=== PATIENT | female | born 1960 | race Caucasian/White ===

== ENCOUNTER 2021-09-21 03:35 | Day surgery (SDC) | payer MEDICARE, MEDICAID, SELFPAY ==
[2021-09-21] VITALS (9 sets, daily range): BP systolic 103–135; BP diastolic 67–83; PULSE 81–96; RESP 12–18; TEMP 36.3–36.8; O2SAT 93–100; BMI 26.7
--- NOTE | 2021-09-21 07:15 | WPDHPUPDATE1 ---
History and Physical Update Update Date/Time: 09/21/21 07:15 History and Physical has been reviewed, including an updated exam of the patient. There are NO changes in the patient's condition. Risks, benefits, and alternatives have been discussed and questions answered. Patient agrees to proceed with procedure.
--- NOTE | 2021-09-21 07:16 | PM.IMHP ---
H&P: HPI History of Present Illness Date/Time: 09/21/21 07:16 61-year-old female with complicated left ovarian cyst complaining of severe pain. Patient suffers from multiple medical issues is and heavy smoker. She had a CT and ultrasound showed a 5cm complex cyst on left. Her pain is unrelenting and she will undergo laparoscopic left cystectomy with probable left salpingo-oophorectomy. Risks and benefits reviewed in full Chief Complaint: Left ovarian cyst and skin tag Review of Systems Review of Systems: All systems reviewed & are unremarkable except as noted in HPI and below Exam Const: General: no acute distress Eyes: General: appearance normal, both eyes and all related structures Neck: Neck: supple and no JVD Thyroid: thyroid normal Resp: Effort & Inspection: normal respiratory effort Auscultation: clear to auscultation bilaterally Cardio: Rate: regular rate Rhythm: regular rhythm GI: Inspection: non-distended GI Palp: Yes Soft to palpation, No Tenderness to palpation present (GI) and No Guarding due to palpation present (GI) Auscultation: normal bowel sounds : External Female Exam: normal external appearance Speculum Exam - Vagina: normal appearance of the vagina Bimanual Exam- Adnexa, other: tender bilaterally and Adnexal mass present on the left Skin: General skin exam: no rashes or lesions noted Extrem: General: normal to inspection and no edema Psych: Mental Status: mental status grossly normal Affect: normal affect Assessment and Plan Additional Plan Impression: Complex left ovarian cyst Plan: Laparoscopic left cystectomy with probable left salpingo-oophorectomy. She also has a skin tag on her perineum which we removed
--- NOTE | 2021-09-21 09:19 | PC.NURSE ---
Report to the Outpatient Waiting Room, entrance under the green pavilion located off [facility], at time 1215 on date 09/21/21. OR Time: 1415. - You and your visitor will be asked a series of questions to screen for COVID 19 for your protection. - A mask is required within the hospital. - Only one visitor is allowed at this time. Patient visitors will be guided where to wait when not with patient. Preoperative COVID Testing Requirements: No COVID Test needed if: (proof is required; if not received patient will have Rapid Test prior to entry) - Patient has received COVID Vaccine at least 14 days prior to procedure date or - Patient has positive COVID test result within last 90 days of surgery date. COVID Test needed if above criteria is not met If not COVID vaccinated a COVID test must be conducted within 72 hours of surgery and patient is asked to isolate self from time of testing until procedure. You will go to the [facility] for your COVID testing. The [facility] is located at the corner of [address] [facility]. You will only be called if COVID results are positive and your surgeon may reschedule your elective surgery date. Patients may have clear liquids (water, carbonated beverages, clear teas, apple juice) until 3 hours prior to surgery with a maximum of 20 ounces. - No food from midnight until time of surgery - Infants may have breast milk until 4 hours before surgery, infant formula 6 hours prior to surgery. - Children will be allowed to drink immediately following surgery. If applicable, please bring a bottle or sippy cup to assist with drinking. Juice, water, soda, and popsicles are readily available. For infants on formula, please bring formula the day of surgery. Pacifiers are allowed. Take the following medications with a SIP of water the morning of surgery: N/A - PT TOOK ALL HOME MEDS ~0530 Medications to discontinue per physician: N/A Date to take last dose: N/A Please no make-up, nail irish, hairspray, perfume, deodorant, or body powder the day of surgery. No jewelry (including any body piercings) or valuables the day of surgery, leave them at home. Please take a shower or bath the night before, or the morning of, surgery with an antibacterial soap. Wear comfortable, loose fitting clothing. Children are encouraged to wear pajamas. - Jewelry must be removed prior to entering the operating room. Rings and piercings that are not removed may be cut off. - The hospital will not accept responsibility for valuables. - Please leave all valuables, including medications, at home the day of surgery. If you are going home after surgery, a licensed line haul driver must drive you home. - NO public transportation without another adult. - We recommend that an adult stay with you for 24 hours following discharge. - We also recommend that you do not drive, make important decision, drink alcoholic beverages, or take any drugs that were not prescribed by your health care provider for at least 24 hours after your discharge time. For Pediatric surgeries, we recommend two adults accompany the child home (only one inside the building at this time). Follow any additional instructions given to you from your surgeon. Telephone instructions given to RADHA NARAYANAN and asked if any additional questions and then verbalized understanding. Patient advised to call surgeon office or pre surgery nurse liaison [phone] if any additional questions.
--- NOTE | 2021-09-21 12:24 | WPDANESEPPF ---
Anes - Initial Pre Proc Eval Procedure: Operation Date: 09/21/21 14:15 Proposed Procedures p Diagnostic Laparoscopy Left Ovarian Cystectomy, Possible Salpingo-Oophorectomy - Tal Parra MD Date/Time: 09/21/21 12:24 Surgeon: Tal Parra MD Pre Op Diagnosis: pain left ovarian cyst Patient Data Age: 61 Gender: F Height: 1.7 m Weight: 77.57 kg Allergies Allergy/AdvReac Type Severity Reaction Status Date / Time No Known Allergies Allergy Verified 09/21/21 08:47 Home Medications Medication Instructions Recorded Confirmed Type dapagliflozin-metformin [Xigduo XR] 1 tablet PO DAILY 09/21/21 09/21/21 History gabapentin 300 mg PO TID 09/21/21 09/21/21 History hydrochlorothiazide 12.5 mg PO DAILY 09/21/21 09/21/21 History hydrocodone-acetaminophen 1 tablet PO Q6H 09/21/21 09/21/21 History linaclotide [Linzess] 145 mcg PO DAILY 09/21/21 09/21/21 History lisinopril 40 mg PO DAILY 09/21/21 09/21/21 History morphine 30 mg PO BID 09/21/21 09/21/21 History Patient hx anesthesia problems: none Family hx anesthesia problems: none Results Review: All pre-operative results and documents have been reviewed as part of the pre-operative evaluation. [facility] Past Medical History Medical History Anxiety Chronic narcotic use Diabetes HTN (hypertension) Osteoarthritis Overweight (BMI 25.0-29.9) Smoker Surgical History Surgical History (Updated 09/21/21 @ 12:26 by Paulie Hamilton MD) S/P pericardial window creation Social History Social History Smoking packs per day: 1.5 Smoking cigarettes per day: 30.0 Years smoked: 40 Smoking pack-years: 60.00 Smoking status: Current every day smoker Tobacco type: cigarettes Alcohol intake: never Substance use: never Substance use type: does not use Living arrangements: with family Spiritual care concerns: No Anes - Eval Final PreProcedure Day of Procedure 09/21/21 12:24 Patient weight: overweight Heart: regular rate and rhythm Lungs: clear to auscultation and normal air movement Airway: Mallampati scale class II Neurological: alert and oriented Last oral intake: >/= 8 hours ASA classification: III Emergent: no Anesthetic plan: proceed Anesthesia type and monitoring: general ETT Results Review: All pre-operative results and documents have been reviewed as part of the pre-operative evaluation. Informed Consent: The patient's anesthetic plan and its attendant risks and benefits were discussed with the patient/family/POA. Questions were solicited and answers provided to the satisfaction of the patient/family/POA.
--- NOTE | 2021-09-21 12:34 | ECG_ITS ---
Measurements Intervals [place] Rate: 87 P: 30 AK: 188 QRS: 63 QRSD: 89 T: 63 QT: 312 QTc: 376 Interpretive Statements SINUS RHYTHM CANNOT RULE OUT SEPTAL INFARCT, AGE INDETERMINATE BASELINE ARTIFACT- I, II, AVR, AVL, AVF, V6 ABNORMAL ECG Electronically Signed On 09-21-2021 16:32:41 [employer] by Raman Duke D.O.
[2021-09-21] MEDS: fentaNYL CITRATE INJ (*CRX) 100 MCG/2 ML VIAL 50 MCG IV PUSH ×2 (12:50→13:10)
[2021-09-21] MEDS: KETOROLAC 15 MG/ML VIAL (*BKC) IV PUSH (13:00)
[2021-09-21] MEDS: LACTATED RINGERS 1,000 ML 30 ML IV CONT ×2 (13:00→15:45)
[2021-09-21] MEDS: ACETAMINOPHEN 500 MG TABLET 1000 MG PO (13:02)
[2021-09-21 13:09] LABS: Glucose Point of Care 173 mg/dl (65-105)
[2021-09-21 13:29] LABS: Anion Gap 7 mmol/L (8-16); Blood Urea Nitrogen 24 mg/dL (7-17); Calcium 9.4 mg/dL (8.4-10.2); Carbon Dioxide 25 mmol/L (22-30); Chloride 101 mmol/L (98-107); Estimated CRCL calculation 72 ml/min; Estimated Glomerular Filt Rate > 60; Glucose 157 mg/dL (65-110); Potassium 3.8 mmol/L (3.4-5.0); Sodium 133 mmol/L (137-145)
--- NOTE | 2021-09-21 15:39 | W.PM.PROC2 ---
Procedure Note - Detailed Date of Procedure 09/21/21 Pre-op Diagnosis pain left ovarian cyst Post-op Diagnosis same Procedure Performed Laparoscopic left oophorectomy and lysis of adhesions Surgeon Tal Parra MD Anesthesia general Indications This is 61-year-old female who was seen following an ER visit with complex left ovarian cyst. She had had pain discomfort in under unrelenting pain. Findings Normal-appearing right ovary tube. Normal-appearing uterus. Large left ovarian cyst which was adherent to the colon Description of Procedure The patient was prepped draped in the normal sterile fashion and placed in the dorsal lithotomy position. Under excellent general trach anesthesia weighted speculum was placed in posterior fornix vagina. Anterior lip of the cervix grasped with a single-tooth tenaculum and the Burnett's cannula inserted and attached to the single-tooth to be used later for UPEP uterine manipulation. After emptying the bladder clear urine the weighted speculum was removed and gloves were changed. An infraumbilical incision made the Veress needle passed in the abdomen. The abdomen filled with CO2 gas [id number]. The 5mm trocar advanced under direct visualization assuring no injury. The patient placed in Trendelenburg and a suprapubic incision made. The 5mm trocar advanced under direct visualization assuring no injury. The left lower quadrant incision made and the 10mm trocar advanced under direct visualization assuring no injury. A complex left ovarian cyst was seen the uterus appeared within normal limits as to the right ovary and tube. The colon was markedly adherent in this area and using sharp dissection was gently dissected away from this complex ovarian cyst. The infundibulopelvic structure was then skeletonized. Clamped, burned, cut and this was then placed in an Endo-Catch. This was then removed through the left lower quadrant incision. Irrigation undertaken to clear. The pedicles appeared dry. The lower site removed. The gas removed from the abdomen. In the upper site removed and closed with 4 Monocryl and glue. The instruments removed from the vagina. A large skin tag was noted as about 2cm in size on a stalk on the right labia. This was incised with 11 blade and a [id number] suture with 4-0 Monocryl was used to close it was sent for pathology. The patient was awakened went to recovery in satisfactory condition. All sponge, needle, instrument counts were correct. There were no immediate complications Estimated Blood Loss 5 Drains No Packing No Pathology yes Complications No immediate complications Condition stable Disposition PACU
[2021-09-21] MEDS: fentaNYL CITRATE INJ (*CRX) 100 MCG/2 ML VIAL 25 MCG IV PUSH ×8 (16:01→16:22)
[2021-09-21 16:02] LABS: Glucose Point of Care 199 mg/dl (65-105)
[2021-09-21] MEDS: HYDROmorphone HCL INJ (*CRX) 1 MG/ML SYR IV PUSH ×2 (16:26→16:41)
[2021-09-21] MEDS: oxyCODONE HCL (*CRX) 5 MG TAB IR PO (17:13)
== END 2021-09-21 17:40 | disposition home or self-care (01) ==
PROVIDERS: PCP Family Medicine Sports Medicine; Visit Provider Obstetrics & Gynecology
PROC: (CPT 49320; principal; 2021-09-21 14:15)
PROC: (CPT 58661; 2021-09-21 14:15)
DX: D27.1 Benign neoplasm of left ovary (principal); N73.6 Female pelvic peritoneal adhesions (postinfective); L82.1 Other seborrheic keratosis; F41.9 Anxiety disorder, unspecified; E11.9 Type 2 diabetes mellitus without complications; I10 Essential (primary) hypertension; F17.210 Nicotine dependence, cigarettes, uncomplicated
CPT/HCPCS: 58661; 11200; 36415; 80048; 82948; 86850; 86900; 86901; 88305; 93005; A9270; J0330; J1100; J1170; J1885; J2405; J2704; J3010; J7120

== ENCOUNTER 2022-03-20 12:58 | Outpatient (CLI) | payer MEDICARE, MEDICAID, SELFPAY ==
[2022-03-20 13:29] LABS: Hematocrit 48.4 % (37.0-47.0); Hemoglobin 16.1 g/dL (12.0-15.0); Mean Corpuscular HGB Conc 33.3 g/dl (32-36); Mean Corpuscular Hemoglobin 29.8 pg (26-34); Mean Corpuscular Volume 89.6 fl (80-100); Mean Platelet Volume 9.4 fl (7.4-10.4); Platelet Count Result 250 k/mm3 (150-375); Red Cell Distribution Width 12.7 % (11.5-14.5)
[2022-03-20 13:38] LABS: Anion Gap 3 mmol/L (8-16); Blood Urea Nitrogen 18 mg/dL (7-17); Calcium 8.9 mg/dL (8.4-10.2); Carbon Dioxide 28 mmol/L (22-30); Chloride 106 mmol/L (98-107); Estimated Glomerular Filt Rate > 60; Glucose 151 mg/dL (65-110); Potassium 4.1 mmol/L (3.4-5.0); Sodium 137 mmol/L (137-145)
== END 2022-03-20 12:59 | disposition home or self-care (01) ==
PROVIDERS: Anesthesiology; PCP Family Medicine Sports Medicine; Visit Provider Student in an Organized Health Care Education/Training Program
DX: R10.2 Pelvic and perineal pain (principal); E11.9 Type 2 diabetes mellitus without complications
CPT/HCPCS: 36415; 80048; 85027; 86850; 86900; 86901

== ENCOUNTER 2022-03-21 01:11 | Day surgery (SDC) | payer MEDICARE, MEDICAID, SELFPAY ==
[2022-03-19 08:29] VITALS: BMI 25.2
--- NOTE | 2022-03-19 08:37 | PC.NURSE ---
Report to the Outpatient Waiting Room, entrance under the green pavilion located off [facility], at time 10:00 on date 03/21/22. OR Time: 12:00. - You and your visitor will be asked a series of questions to screen for COVID 19 for your protection. - Only one visitor is allowed at this time. - The patient visitor is requested to leave or wait in car when not with patient. - A mask is required within the hospital. Patients may have clear liquids (water, carbonated beverages, clear teas, apple juice) until 3 hours prior to surgery (9:00) with a maximum of 20 ounces. - No food from midnight until time of surgery Take the following medications with a SIP of water the morning of surgery: GABAPENTIN, PAIN PILL(S) (IF NEEDED) Medications to discontinue per physician: N/A Date to take last dose: N/A Please no make-up, nail georgian, hairspray, perfume, deodorant, or body powder the day of surgery. No jewelry (including any body piercings) or valuables the day of surgery, leave them at home. Please take a shower or bath the night before, or the morning of, surgery with an antibacterial soap. Wear comfortable, loose fitting clothing. - Jewelry must be removed prior to entering the operating room. Rings and piercings that are not removed may be cut off. - The hospital will not accept responsibility for valuables. - Please leave all valuables, including medications, at home the day of surgery. If you are going home after surgery, a licensed commercial driver's license driver must drive you home. - NO public transportation without another adult. - We recommend that an adult stay with you for 24 hours following discharge. - We also recommend that you do not drive, make important decision, drink alcoholic beverages, or take any drugs that were not prescribed by your health care provider for at least 24 hours after your discharge time. Follow any additional instructions given to you from your surgeon. If you or anyone in your household have experienced Covid symptoms in the past week, please notify your surgeon or the nurse liaison at the phone number below for possible testing. Telephone instructions given to PT - RADHA NARAYANAN and asked if any additional questions and then verbalized understanding. Patient advised to call surgeon office or pre surgery nurse liaison [phone] if any additional questions.
--- NOTE | 2022-03-20 08:55 | WPDANESEPPF ---
Anes - Initial Pre Proc Eval Procedure: Operation Date: 03/21/22 12:00 Proposed Procedures p Laparoscopic Right Salpingo-Oophorectomy - Kem David MD <Paulie Hamilton MD - Last Filed: 03/22/22 09:20> Date/Time: 03/20/22 08:55 <Paulie Hamilton MD - Last Filed: 03/22/22 09:20> Surgeon: Kem David MD <Paulie Hamilton MD - Last Filed: 03/22/22 09:20> Pre Op Diagnosis: right lower quad pain <Paulie Hamilton MD - Last Filed: 03/22/22 09:20> Patient Data Age: 61 Gender: F Height: 1.7 m Weight: 73.03 kg <Paulie Hamilton MD - Last Filed: 03/22/22 09:20> Allergies Allergy/AdvReac Type Severity Reaction Status Date / Time No Known Allergies Allergy Verified 03/21/22 10:09 <Paulie Hamilton MD - Last Filed: 03/22/22 09:20> Home Medications Medication Instructions Recorded Confirmed Type dapagliflozin 10 mg-metformin ER 1 tablet PO DAILY 09/21/21 03/21/22 History 1,000 mg tablet,extended release 24hr (Xigduo XR) gabapentin 300 mg capsule 300 mg PO TID 09/21/21 03/21/22 History hydrocodone 10 mg-acetaminophen 1 tablet PO Q6H 09/21/21 03/21/22 History 325 mg tablet linaclotide 145 mcg capsule 145 mcg PO DAILY 09/21/21 03/21/22 History (Linzess) lisinopril 40 mg tablet 40 mg PO DAILY 09/21/21 03/21/22 History morphine 30 mg tablet,extended 30 mg PO BID 09/21/21 03/21/22 History release ibuprofen 600 mg tablet 600 mg PO Q6H PRN pain #30 tabs 03/21/22 Rx <Paulie Hamilton MD - Last Filed: 03/22/22 09:20> Patient hx anesthesia problems: none <Meliton Oviedo MD - Last Filed: 03/21/22 11:50> Family hx anesthesia problems: none <Meliton Oviedo MD - Last Filed: 03/21/22 11:50> Results Review: All pre-operative results and documents have been reviewed as part of the pre-operative evaluation. <Paulie Hamilton MD - Last Filed: 03/22/22 09:20> [facility] Past Medical History Medical History: Medical History Anxiety Chronic narcotic use Diabetes HTN (hypertension) Osteoarthritis Overweight (BMI 25.0-29.9) Smoker <Paulie Hamilton MD - Last Filed: 03/22/22 09:20> Surgical History Surgical History: Surgical History (Updated 09/21/21 @ 12:26 by Paulie Hamilton MD) S/P pericardial window creation <Paulie Hamilton MD - Last Filed: 03/22/22 09:20> Social History Social History: Social History Smoking packs per day: 1.5 Smoking cigarettes per day: 30.0 Years smoked: 40 Smoking pack-years: 60.00 Smoking status: Current every day smoker Tobacco type: cigarettes Alcohol intake: never Substance use: never Substance use type: does not use Living arrangements: with family Spiritual care concerns: No <Paulie Hamilton MD - Last Filed: 03/22/22 09:20> Anes - Eval Final PreProcedure Day of Procedure 03/20/22 08:55 <Paulie Hamilton MD - Last Filed: 03/22/22 09:20> Patient weight: overweight <Paulie Hamilton MD - Last Filed: 03/22/22 09:20> Heart: regular rate and rhythm <Paulie Hamilton MD - Last Filed: 03/22/22 09:20> Lungs: clear to auscultation and normal air movement <Paulie Hamilton MD - Last Filed: 03/22/22 09:20> Airway: Mallampati scale class II <Paulie Hamilton MD - Last Filed: 03/22/22 09:20> Neurological: alert and oriented <Paulie Hamilton MD - Last Filed: 03/22/22 09:20> Last oral intake: >/= 8 hours <Paulie Hamilton MD - Last Filed: 03/22/22 09:20> ASA classification: III <Paulie Hamilton MD - Last Filed: 03/22/22 09:20> Emergent: no <Paulie Hamilton MD - Last Filed: 03/22/22 09:20> Anesthetic plan: proceed <Paulie Hamilton MD - Last Filed: 03/22/22 09:20> Anesthesia type and monitoring: general ETT <Paulie Hamilton MD - Last Filed: 03/22/22 09:20> Results Review: All pre-operative result
--- NOTE | 2022-03-20 13:07 | PM.IMHP ---
H&P: HPI History of Present Illness Date/Time: 03/20/22 13:07 Chief Complaint: pelvic pain Narrative: 61 yo female who presents for laparoscopic right salpingo-oophorectomy for pelvic pain. Pt presented with right sided pelvic pain. Pt had similar pain her left pelvix last year and was found have a ovarian cyst. 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 Pt would like to have her right ovary surgically removed. Review of Systems Cardiovascular: Cardiovascular: Denies chest pain, Denies leg edema, Denies palpitations, Denies dyspnea and Denies dyspnea on exertion Respiratory: Respiratory: Denies cough, Denies dyspnea and Denies dyspnea on exertion Gastrointestinal: Gastrointestinal: Denies abdominal pain, Denies constipation, Denies diarrhea, Denies nausea and Denies vomiting Genitourinary: Genitourinary: Denies hematuria, Denies urinary frequency, Denies dysuria, Denies pelvic pain, Denies urinary incontinence and Denies vaginal discharge Neurologic: Reports system reviewed and no additional complaints, except as documented Psychiatric: Psychiatric: Reports no additional psychiatric complaints Endocrine: Endocrine: Denies palpitations PMFSH Past Medical History Medical History Anxiety Chronic narcotic use Diabetes HTN (hypertension) Osteoarthritis Overweight (BMI 25.0-29.9) Smoker Surgical History Surgical History (Updated 09/21/21 @ 12:26 by Paulie Hamilton MD) S/P pericardial window creation Social History Social History Smoking packs per day: 1.5 Smoking cigarettes per day: 30.0 Years smoked: 40 Smoking pack-years: 60.00 Smoking status: Current every day smoker Tobacco type: cigarettes Alcohol intake: never Substance use: never Substance use type: does not use Spiritual care concerns: No Meds Home Medications and Allergies Home Medications Medication Instructions Recorded Confirmed Type dapagliflozin 10 mg-metformin ER 1 tablet PO DAILY 09/21/21 03/19/22 History 1,000 mg tablet,extended release 24hr (Xigduo XR) gabapentin 300 mg capsule 300 mg PO TID 09/21/21 03/19/22 History hydrocodone 10 mg-acetaminophen 1 tablet PO Q6H 09/21/21 03/19/22 History 325 mg tablet linaclotide 145 mcg capsule 145 mcg PO DAILY 09/21/21 03/19/22 History (Linzess) lisinopril 40 mg tablet 40 mg PO DAILY 09/21/21 03/19/22 History morphine 30 mg tablet,extended 30 mg PO BID 09/21/21 03/19/22 History release Allergies Allergy/AdvReac Type Severity Reaction Status Date / Time No Known Allergies Allergy Verified 03/19/22 08:27 Exam Const: General: no acute distress Eyes: EOM: EOMs intact bilaterally Neck: Neck: supple Thyroid: thyroid normal Chest: Breast/axilla inspection: normal inspection of the breasts Breast/axilla palpation: normal palpation of the breasts, normal palpation of the axillae and no axillary lymphadenopathy Resp: Effort & Inspection: normal respiratory effort Auscultation: clear to auscultation bilaterally Cardio: Rate: regular rate Rhythm: regular rhythm GI: Inspection: non-distended GI Palp: Yes Soft to palpation, No Tenderness to palpation present (GI) and No Guarding due to palpation present (GI) Auscultation: normal bowel sounds : General: No bladder normal to palpation External Female Exam: normal external appearance Speculum Exam - Vagina: normal vaginal discharge and No vaginal bleeding Speculum Exam - Cervix: nontender Bimanual exam- vagina & uterus: No bladder normal to palpation and No Cervical tenderness present OB/external & speculum: No vaginal bleeding Skin: General skin exam: normal color and no rashes or lesions noted Neuro: Cognition (Neuro): normal cognition Speech: normal speech Extrem: General: normal to inspection and no edema Psych: Mental Status: mental status grossly normal Affect: normal affect Assessment and P
[2022-03-21] VITALS (9 sets, daily range): BP systolic 121–160; BP diastolic 69–94; PULSE 72–95; RESP 10–22; TEMP 36.1–36.3; O2SAT 94–100
--- NOTE | 2022-03-21 07:29 | WPDHPUPDATE1 ---
History and Physical Update Update Date/Time: 03/21/22 07:29 History and Physical has been reviewed, including an updated exam of the patient. There are NO changes in the patient's condition. Risks, benefits, and alternatives have been discussed and questions answered. Patient agrees to proceed with procedure.
[2022-03-21] MEDS: ACETAMINOPHEN 500 MG TABLET 1000 MG PO (10:20)
[2022-03-21] MEDS: KETOROLAC 15 MG/ML VIAL (*BKC) IV PUSH (10:36)
[2022-03-21] MEDS: LACTATED RINGERS 1,000 ML 30 ML IV CONT ×2 (10:36→12:59)
[2022-03-21 10:40] LABS: Glucose Point of Care 167 mg/dl (65-105)
--- NOTE | 2022-03-21 12:40 | P.OP_ITS ---
Procedure Note - Detailed Date of Procedure 03/21/22 Pre-op Diagnosis right lower quad pain Post-op Diagnosis Same Procedure Performed laparoscopic right salpingo-oophorectomy Surgeon Kem David MD Anesthesia General Indications right sided pelvic pain Findings omental adhesions to the abdominal wall in the right upper quadrant and right pelvic side wall at the level of the umbilicus, Normal appearing uterus, right fallopian tube and ovary. Surgically absent left fallopian tube and ovary Description of Procedure The patient was taken to the operating room where general endotracheal anesthesia was undertaken and found to be adequate. She was then prepped and draped in the dorsal lithotomy position and placed in adjustable stirrups. A pre-operative team brief and a time out were completed. A catheter was placed to drain the bladder. Retractors were placed placed in the vagina and the cervix was identified. An acorn uterine manipulator was placed. Attention was then turned to the abdomen which was anesthetized umbilically with injected anesthestic. A 10 mm skin incision was made in the umbilicus. A 5 mm optical trocar was then placed with direct camera visualization of the abdominal layers during placement. The trocar stylet was removed and the camera was used to verify intra-abdominal placement. CO2 insufflation was then connected and resumed. The pelvis was inspected. A left lower quadrant 5 mm port was placed, in addition to a right lower quadrant 5 port in the standard fashion after using local anesthetic. The pelvis was inspected. The above findings were noted. The right fallopian tube was identified and followed out to the fimbriae. This was placed on traction to pull the adnexa away from the pelvic side wall. The right ureter was easily visualized through the peritoneum. The right infundibulopelvic ligament was then grasped and ligated with the Ligasure device. The ligament and its vessels were then transected. The transection was continued along the inferior aspect of the fallopian tube and uteroovarian ligament. This transection was continued to the level of the uterine body. The fallopian tube was then completely transected. The surgical site was inspected and good hemostasis was noted. The surgical field was thoroughly irrigated using normal saline. All surgical beds were noted to be hemostatic. The umbilical incision was then changed to a 10 mm trocar. A 10 mm laparoscopic pouch was then introduced. The specimen was then placed in a pouch and removed from the abdomen through the umilical incision. A [place] with Vicryl suture was used to close the fascia at the umbilical incision. The abdomen was relieved of all CO2 gas. All remaining trocars were removed from the abdomen. The right lower quadrant laparoscopic incision was noted to be ble eding. Hemostasis was achieved with Bovie cautery and direct pressure. Sponge, lap and needle counts were correct. All skin incisions were closed with 4-0 Vicryl suture subcuticularly. The uterine manipulator was removed from the uterus. Hemostasis of the cervix was noted. The urinary catheter was removed. The patient was taken out of dorsal lithotomy position. Anesthesia was reversed. The patient was taken to the PACU. Estimated Blood Loss 25 Urine Output 150 Drains No Packing No Pathology Yes (right fallopian tube and ovary) Complications No immediate complications Condition Stable Disposition PACU
[2022-03-21] MEDS: fentaNYL CITRATE INJ (*CRX) 100 MCG/2 ML VIAL 25 MCG IV PUSH ×8 (12:59→13:35)
[2022-03-21 13:04] LABS: Glucose Point of Care 178 mg/dl (65-105)
[2022-03-21] MEDS: HYDROmorphone HCL INJ (*CRX) 1 MG/ML SYR 0.5 MG IV PUSH ×4 (13:45→14:18)
[2022-03-21] MEDS: oxyCODONE HCL (*CRX) 5 MG TAB IR PO (14:47)
== END 2022-03-21 15:15 | disposition home or self-care (01) ==
PROVIDERS: PCP Family Medicine Sports Medicine; Visit Provider Student in an Organized Health Care Education/Training Program
PROC: (CPT 49320; principal; 2022-03-21 12:00)
DX: R10.31 Right lower quadrant pain (principal); N73.6 Female pelvic peritoneal adhesions (postinfective); R10.2 Pelvic and perineal pain; F17.210 Nicotine dependence, cigarettes, uncomplicated; F41.9 Anxiety disorder, unspecified; E11.9 Type 2 diabetes mellitus without complications; I10 Essential (primary) hypertension; M19.90 Unspecified osteoarthritis, unspecified site
CPT/HCPCS: 58661; 82948; 88305; A9270; J1170; J1885; J2250; J2405; J2704; J3010; J7030; J7120